=== PATIENT | male | born 1940 | race Caucasian/White ===

== ENCOUNTER → 2018-03-06 10:59 | Outpatient (CLI) | payer MEDICARE, OTHER, SELFPAY | PROVIDERS: Family Provider Internal Medicine; PCP Internal Medicine; Visit Provider Internal Medicine Cardiovascular Disease | DX: R00.2 Palpitations (principal); I25.10 Atherosclerotic heart disease of native coronary artery without angina pectoris | CPT/HCPCS: 93225; 93226 ==

== ENCOUNTER → 2019-04-02 13:53 | Outpatient (CLI) | payer MEDICARE, OTHER, SELFPAY ==
[2018-10-18 09:59] VITALS: BMI 27.6
== END ==
PROVIDERS: Family Provider Internal Medicine; PCP Internal Medicine; Referring Provider Internal Medicine Cardiovascular Disease; Visit Provider Internal Medicine Cardiovascular Disease
DX: R00.2 Palpitations (principal)
CPT/HCPCS: 93225; 93226

== ENCOUNTER → 2019-11-19 05:48 | Outpatient (CLI) | payer MEDICARE, OTHER, SELFPAY ==
[2019-11-04 13:06] VITALS: BMI 28.3
--- NOTE | 2019-11-19 11:39 | STRESSREP ---
Stress Test Report Date: 11-19-2019 Procedure: Exercise tolerance test/imaging study Indications: Chest pain; CAD; PCI Consent: Per the patient Procedure: The patient exercised on a Chase protocol for 7 minutes and 30 seconds completing stage II and 1 minute 30 seconds of stage III achieving a peak heart rate of 127 bpm (90 % predicted maximal heart rate) with a peak blood pressure 162/70 mmHg and a peak MET capacity of 9 METs. The baseline ECG demonstrated normal sinus rhythm; right bundle branch block. The peak exercise ECG demonstrated to new right bundle branch block. There were no cardiac dysrhythmias pretest, during exercise, or recovery. The functional capacity was considered good. There was complaint of chest discomfort during exercise or recovery. The examination was discontinued secondary to dyspnea and leg discomfort. Impression: 1. Technically adequate (percent predicted maximal heart rate greater than 85%) exercise tolerance test 2. Peak exercise ECG with continued right bundle branch block 3. There were no cardiac dysrhythmias pretest, during exercise, or recovery 4. Nuclear images pending Myocardial perfusion imaging study: Technique: The patient was injected with 11.6 mCi of technetium 99m Cardiolite and subsequently rest SPECT Cardiolite nuclear imaging was obtained in the horizontal long, vertical long, and short axis views. The patient exercised on a Chase protocol for 7 minutes and 30 seconds completing stage II and 1 minute 30 seconds of stage III achieving a peak heart rate of 127 bpm (90 % predicted maximal heart rate) with a peak blood pressure 162/70 mmHg and a peak MET capacity of 9 METs. The patient was injected with 32.5 mCi of technetium 99m Cardiolite and subsequently stress SPECT Cardiolite nuclear imaging was obtained in the horizontal long, vertical long, and short axis views. A gated Cardiolite study at peak stress was obtained. Interpretation: Rest and stress SPECT Cardiolite nuclear imaging status post realignment, normalization, and attenuation correction, demonstrates the appearance of relative uniform tracer uptake and myocardial perfusion appearing within normal limits. There is end systolic thickening and brightening. The gated Cardiolite study demonstrates myocardial thickening and inward wall motion. The reported LVEF is 66 %. Impression: 1. Rest and stress SPECT Cardiolite nuclear imaging demonstrate relative uniform tracer uptake and myocardial perfusion appearing within normal limits. 2. The gated Cardiolite study reports an LVEF of 66 %. This note was generated with [employer] software. It may contain incorrect words, spelling, and punctuation that were not noted in checking the note before signing.
== END ==
PROVIDERS: Family Provider Internal Medicine; PCP Internal Medicine; Referring Provider Internal Medicine Cardiovascular Disease; Visit Provider Internal Medicine Cardiovascular Disease
DX: I25.10 Atherosclerotic heart disease of native coronary artery without angina pectoris (principal); Z95.5 Presence of coronary angioplasty implant and graft
CPT/HCPCS: 78452; 93017; A9500; A4216

== ENCOUNTER → 2020-04-10 13:40 | Outpatient (CLI) | payer MEDICARE, OTHER, SELFPAY ==
[2020-04-10 09:14] VITALS: BMI 26.7
[2020-04-10 15:47] LABS: Absolute Lymphocyte Count 1.71 X10^3/uL (0.83-4.51); Absolute Neutrophil Count 3.9 X10^3/uL (2.0-7.7); Basophil# 0.04 X10^3/uL; Basophil% 0.6 % (0-1); Eosinophil# 0.18 X10^3/uL; Eosinophils% 2.7 % (0-5); Hematocrit 40.3 % (40-54); Hemoglobin 12.8 g/dL (13.0-16.5); Lymphocyte # 1.71 X10^3/ul (4.0); Lymphocyte % 25.7 % (19-41); Mean Corp Hgb Conc 31.8 g/dL (32-36); Mean Corpuscular Hgb 30.5 pg (27.0-32.0); Mean Platelet Vol. 11.1 fl (6.2-12.0); Monocyte# 0.82 X10^3/uL; Monocyte% 12.3 % (0-10); NRBC Flagged by Analyzer 0 % (0-5); Neutrophil # 3.89 X10^3/uL (2.7-7.7); Neutrophil % 58.4 % (47-70); Platelet Count 186 K/mm3 (150-450); RBC Distribution Width CV 12.9 % (11.6-14.6); RBC Distribution Width SD 45.3 fl (35.1-43.9); White Blood Count 6.7 K/mm3 (4.4-11.0)
[2020-04-10 16:37] LABS: ALB/GLOB Ratio 1.1 RATIO (0.9-2.4); AST(SGOT) 20 U/L (15-37); Alanine Aminotransfer ALT/SGPT 30 U/L (16-61); Alkaline Phosphatase 57 U/L (45-117); Anion Gap 5 (5-15); BUN 15 mg/dL (7-18); Calcium,Total 9.2 mg/dL (8.5-10.1); Chloride 105 mmol/L (98-107); Cholesterol 150 mg/dL (200); Creatinine, Serum 0.94 mg/dL (0.70-1.30); EST Glomerular Filtration Rate 82 mL/min (>60); Est Glom Filt Rate - Afr Amer 100 mL/min (>60); Globulin 3.6 g/dL (2.2-4.2); Glucose 88 mg/dL (74-106); High Density Lipoprotein 52 mg/dL; Magnesium 2.3 mg/dL (1.6-2.6); Potassium 4.1 mmol/L (3.5-5.1); Protein, Total 7.6 g/dL (6.4-8.2); Sodium Level 140 mmol/L (136-145); Thyroid Stim Hormone (TSH) 1.79 uIU/mL (0.358-3.74); Triglycerides 44 mg/dL; Very Low Density Lipoprotein 9 mg/dL (5-40)
== END ==
PROVIDERS: PCP Internal Medicine; Referring Provider Physician Assistant Medical; Visit Provider Physician Assistant Medical
DX: E78.2 Mixed hyperlipidemia (principal); I25.10 Atherosclerotic heart disease of native coronary artery without angina pectoris; R00.2 Palpitations; I34.0 Nonrheumatic mitral (valve) insufficiency
CPT/HCPCS: 36415; 80053; 80061; 83735; 84443; 85025

== ENCOUNTER → 2020-11-27 12:48 | Outpatient (CLI) | payer MEDICARE, OTHER, SELFPAY ==
[2020-11-25 10:20] VITALS: BMI 27.8
--- NOTE | 2020-11-27 12:51 | CDU_ITS ---
Reason For Study: STENOSIS Rt. Velocities/BP Lt. Velocities/BP Prox CCA 111/23 cm/sec. Prox CCA 128/23 cm/sec. Mid CCA 120/23 cm/sec. Mid CCA 121/24 cm/sec. Dist CCA 110/21 cm/sec. Dist CCA 123/26 cm/sec. Prox ICA 83/17 cm/sec. Prox ICA 125/21 cm/sec. Mid ICA 103/26 cm/sec. Mid ICA 105/28 cm/sec. Dist ICA 94/24 cm/sec. Dist ICA 81/26 cm/sec. Rt. ICA/CCA = .9. Lt. ICA/CCA = 1.0. Prox ECA 176/16 cm/sec. Prox ECA 132/13 cm/sec. Rt. Vert. 74/17 cm/sec. Lt. Vert. 54/12 cm/sec. Right Extracranial There is homogeneous, smooth atherosclerotic plaque noted in the right common carotid artery. There is heterogeneous, irregular atherosclerotic plaque noted in the right internal carotid artery. There is heterogeneous, irregular atherosclerotic plaque noted in the right external carotid artery. Antegrade flow is noted in the right vertebral artery. There is heterogeneous, irregular atherosclerotic plaque noted in the right bulb. Left Extracranial There is homogeneous, smooth atherosclerotic plaque noted in the left common carotid artery. There is homogeneous, smooth atherosclerotic plaque noted in the left internal carotid artery. There is homogeneous, smooth atherosclerotic plaque noted in the left external carotid artery. Antegrade flow is noted in the left vertebral artery. There is heterogeneous, irregular atherosclerotic plaque noted in the left bulb. Procedure Carotid Duplex 18264. Exam performed in department. Interpretation Summary Irregular calcific plaque distal right common carotid and proximal right internal carotid artery Less than 50% stenosis right internal carotid artery Less than 50% stenosis right external carotid artery Irregular calcific plaque at the proximal left internal carotid artery with 50 to 69% stenosis. Less than 50% stenosis left external carotid artery Patent and antegrade vertebral arteries bilaterally Ordering Physician: Charles Castro Referring Physician: CATHERINE BETHEA Performed By: Vicky Donis, RYANN, RVT
== END ==
PROVIDERS: PCP Internal Medicine; Referring Provider Internal Medicine Cardiovascular Disease; Visit Provider Internal Medicine Cardiovascular Disease
DX: I65.21 Occlusion and stenosis of right carotid artery (principal)
CPT/HCPCS: 93880

== ENCOUNTER → 2022-11-09 | Outpatient (CLI) | payer MEDICARE, OTHER, SELFPAY ==
--- NOTE | 2022-11-09 08:58 | CDU_ITS ---
Reason For Study: Carotid artery disease Rt. Velocities/BP Lt. Velocities/BP Prox CCA 130.2/17 cm/sec. Prox CCA 149.9/16 cm/sec. Mid CCA 143/22.5 cm/sec. Mid CCA 125.8/20.4 cm/sec. Dist CCA 108.3/18.8 cm/sec. Dist CCA 112.6/18.2 cm/sec. Prox ICA 108.3/18.8 cm/sec. Prox ICA 124.7/18.8 cm/sec. Mid ICA 108.3/22.5 cm/sec. Mid ICA 121.1/20.6 cm/sec. Dist ICA 99.2/24.3 cm/sec. Dist ICA 99.2/24.3 cm/sec. Rt. ICA/CCA = 0.83. Lt. ICA/CCA = 0.99. Prox ECA 193.8/9.4 cm/sec. Prox ECA 178.5/2.9 cm/sec. Rt. Vert. 72.8/12.6 cm/sec. Lt. Vert. 59.7/11.3 cm/sec. Right Extracranial There is heterogeneous, irregular atherosclerotic plaque noted in the right common carotid artery. There is heterogeneous, irregular atherosclerotic plaque noted in the right internal carotid artery. There is heterogeneous, irregular atherosclerotic plaque noted in the right external carotid artery. Antegrade flow is noted in the right vertebral artery. Left Extracranial There is homogeneous, smooth atherosclerotic plaque noted in the left common carotid artery. There is heterogeneous, irregular atherosclerotic plaque noted in the left internal carotid artery. There is heterogeneous, irregular atherosclerotic plaque noted in the left external carotid artery. Antegrade flow is noted in the left vertebral artery. VL/Carotid Duplex Ultrasound Interpretation Summary Mild (<50%) stenosis right extracranial internal carotid. Mild (<50%) stenosis left extracranial internal carotid. Patent and antegrade vertebrals bilaterally. Ordering Physician: Moreno Charlton Referring Physician: Nereyda Oglesby M.D. Performed By: Sarah Alvarez RVT
== END | disposition home or self-care (01) ==
LOC: CVS 08:57
PROVIDERS: PCP Internal Medicine; Visit Provider Nurse Practitioner Family
DX: I65.22 Occlusion and stenosis of left carotid artery (principal)
CPT/HCPCS: 93880

== ENCOUNTER → 2024-05-29 | Outpatient (CLI) | payer MEDICARE, OTHER, SELFPAY ==
--- NOTE | 2024-05-29 09:50 | RAD_ITS ---
STUDY: X-RAY - LUMBAR SPINE REASON FOR EXAM: Male, 83 years old. Pain. TECHNIQUE: 5 view(s) of the lumbar spine were obtained. COMPARISON: None FINDINGS: Osteopenia. Normal lordosis. No substantial scoliosis. 9 mm of anterolisthesis of L4 on L5. Diffuse lower thoracic and lumbosacral facet sclerosis. Diffuse intervertebral disc space narrowing with osteophytes most marked in the lower thoracic spine, L1-L2 and to the greatest degree at L4-L5 and L5-S1. Mild arthrosis of both hips. Marked aortic calcification. RAD/L/S Spine Min 4 Views IMPRESSION: Osteopenia with lower thoracic and lumbosacral spondylosis as described. No acute finding. Electronically Signed: Heber Mendes MD at 15:57 EDT ,
--- NOTE | 2024-05-29 09:50 | RAD_ITS ---
INDICATION: PAIN EXAMINATION/TECHNIQUE: X-RAY - LEFT XR Knee Complete 4 Views or More 4 VIEWS COMPARISON: none FINDINGS: SOFT TISSUES: No soft tissue swelling or gas. No radiopaque foreign body. Mineralization of the superior MCA. Scattered peripheral atherosclerosis. BONES/JOINTS: No acute fracture.. Normal alignment. Tricompartment joint space narrowing, severe at the lateral patellofemoral compartment, with mild tricompartment mild osteophyte formation.. No aggressive osseous lesion. 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 Sequela of old MCL injury. Electronically Signed: Dru Christy MD at 8:23 EDT ,
== END | disposition home or self-care (01) ==
LOC: LAB 09:45
PROVIDERS: PCP Internal Medicine; Referring Provider Anesthesiology; Visit Provider Anesthesiology
DX: M25.562 Pain in left knee (principal)
CPT/HCPCS: 72110; 73564

== ENCOUNTER → 2024-07-22 | Outpatient (CLI) | payer MEDICARE, OTHER, SELFPAY ==
--- NOTE | 2024-07-22 09:53 | ECHOD_ITS ---
Reason For Study: AMYLOIDOSIS Procedure This was a 2D Doppler, Color Flow transthoracic echocardiogram. Myocardial strain analysis was performed in this exam to aid in the assessment of cardiac function. The study was technically difficult. Exam performed in department. Left Ventricle Normal LV size. Left ventricular systolic function is normal. The left ventricular ejection fraction is 60 %. Stage 1 diastolic dysfunction. No regional wall motion abnormalities noted. Right Ventricle Normal RV size. Normal systolic function. Atria Normal left atrium. Normal right atrium. Tricuspid Valve Normal tricuspid valve. Mild tricuspid valve insufficiency. Pulmonary artery systolic pressure is 22 mmHg. Aortic Valve Trisinus/trileaflet aortic valve. Pulmonic Valve Normal pulmonic valve. Great Vessels Normal aortic root. The pulmonary artery is normal size. Inferior vena cava collapse with respiration. Pericardium/Pleural No pericardial effusion. MMode/2D Measurements & Calculations LVIDd: 5.5 cm IVSd: 1.3 cm LVOT diam: 2.0 cm LVIDs: 3.5 cm LVPWd: 1.1 cm LVOT area: 3.0 cm2 RVDd: 3.7 cm FS: 36.5 % LAV(MOD-bp): 42.3 ml LVAd ap4: 24.1 cm2 LVAd ap2: 17.1 cm2 LAV(MOD-bp) Indexed: 22.1 ml/m2 LVLd ap4: 6.9 cm LVLd ap2: 5.8 cm LAV(MOD-sp2): 41.7 ml EDV(MOD-sp4): 71.5 ml EDV(MOD-sp2): 40.8 ml LAV(MOD-sp4): 38.0 ml EDV(sp4-el): 70.9 ml EDV(sp2-el): 43.0 ml LVAs ap4: 13.9 cm2 LVAs ap2: 10.5 cm2 LVLs ap4: 5.1 cm LVLs ap2: 5.1 cm ESV(MOD-sp4): 32.8 ml ESV(MOD-sp2): 17.9 ml ESV(sp4-el): 32.2 ml ESV(sp2-el): 18.5 ml EF(MOD-sp4): 54.2 % EF(MOD-sp2): 56.1 % EF(sp4-el): 54.5 % SV(MOD-sp4): 38.8 ml SV(MOD-sp2): 22.8 ml SV(sp4-el): 38.7 ml Ao sinus diam: 3.[address] Junction: 3.0 cm LA A4 area: 14.4 cm2 LA dimension(2D): 4.0 cm RA A4 area: 14.9 cm2 TAPSE: 1.6 cm Time Measurements MV dec time: 0.18 sec Doppler Measurements & Calculations MV E max arsenio: 87.1 cm/sec Lat Peak E' Arsenio: 8.2 cm/sec Med Peak E' Arsenio: 8.0 cm/sec MV A max arsenio: 90.9 cm/sec E/E' lat: 10.6 E/E' med: 10.9 MV E/A: 0.96 Ao V2 max: 131.6 cm/sec LV V1 max: 118.7 cm/sec MV dec slope: 497.9 cm/sec2 Ao max P.9 mmHg LV V1 max P.6 mmHg Ao V2 mean: 90.0 cm/sec LV V1 mean P.0 mmHg Ao mean P.7 mmHg LV V1 mean: 83.6 cm/sec Ao V2 VTI: 29.3 cm LV V1 VTI: 27.2 cm AV (velocity ratio): 0.93 REDDY(I,D): 2.8 cm2 REDDY(V,D): 2.7 cm2 SV(LVOT): 82.0 ml PA V2 max: 99.8 cm/sec TR max arsenio: 221.5 cm/sec PA max PG (full): 0.81 mmHg TR max P.6 mmHg ECHO/Echo Complete Interpretation Summary Normal LV size. Left ventricular systolic function is normal. The left ventricular ejection fraction is 60 %. Stage 1 diastolic dysfunction. The global longitudinal strain is normal. The global longitudinal strain = -20. 1 % (normal). Ordering Physician: Felisa Dominguez Referring Physician: Nereyda Oglesby M.D. Performed By: Alyx Julian RDCS
== END | disposition home or self-care (01) ==
LOC: CVS 09:52
PROVIDERS: PCP Internal Medicine; Referring Provider Physician Assistant Medical; Visit Provider Physician Assistant Medical
DX: E85.9 Amyloidosis, unspecified (principal)
CPT/HCPCS: 93306

== ENCOUNTER → 2024-11-11 | Outpatient (CLI) | payer MEDICARE, OTHER, SELFPAY ==
--- NOTE | 2024-11-11 10:15 | MRI_ITS ---
STUDY: MRI LUMBAR SPINE WITHOUT CONTRAST REASON FOR EXAM: Male, 84 years old. Back pain x8 years. Spondylosis. TECHNIQUE: Standardized fat and water weighted pulse sequences were obtained in the sagittal and axial planes. COMPARISON: Lumbar spine radiographs 05/29/2024. FINDINGS: T11-T12 and T12-L1: (Sagittal only). Normal endplates. Normal disc height, hydration and morphology Normal central canal and bilateral intervertebral neural foramina. Normal lumbar lordosis. There is no substantial scoliosis. Normal conus medullaris that terminates at the T12-L1 disc space level. L1-2: Normal endplates. Normal disc height, hydration and morphology. Normal bilateral facet joints. Normal central canal and bilateral lateral recesses. Normal bilateral intervertebral neural foramina. L2-3: Normal endplates. Normal disc height. Mild ventral extradural defect due to posterior bulging annulus. Mild bilateral degenerative facet arthropathy. Posterior ligamenta flava hypertrophy and moderate pronounced central canal stenosis with an AP canal diameter 6 mm. Normal bilateral lateral recesses. Mild stenosis of the bilateral intervertebral neuroforamina. L3-4: Normal endplates. Normal disc height. Minimal degenerative anterolisthesis of L3 on L4. Moderate bilateral degenerative facet arthropathy. Asymmetric posterior ligamenta flava hypertrophy. Mild dorsal epidural lipomatosis. Moderately pronounced central canal stenosis with an AP canal diameter of 5.5 mm. Normal bilateral lateral recesses. Mild stenosis of the bilateral intervertebral neuroforamina, left greater than right. L4-5: Modic type I degenerative vertebral marrow edema underneath the vertebral endplates. Moderate disc space height narrowing. Mild degenerative anterolisthesis of L4 on L5. Moderately pronounced bilateral degenerative facet arthropathy. Mild central canal stenosis with an AP canal diameter of 9 mm. Normal bilateral lateral recesses. Moderate stenosis of the bilateral intervertebral neuroforamina. L5-S1: Modic type II degenerative vertebral marrow fat infiltration underneath the vertebral endplates. Moderate disc space height narrowing. Mild degenerative retrolisthesis of L5 on S1. Mild bilateral degenerative facet arthropathy. Normal central canal and bilateral lateral recesses. Moderate stenosis of the left intervertebral neuroforamen. [id number] stenosis of the right intervertebral neuroforamen. Normal visualized sacral ala. Normal visualized paraspinous soft tissue structures. MRI/Spine Lumbar (Routine) IMPRESSION: 1. Moderate L4-L5 intervertebral osteochondritis (Modic type I), mild degenerative anterolisthesis of L4 on L5, moderate disc space height narrowing, moderately pronounced bilateral degenerative facet arthropathy, mild central canal stenosis with small posterior bulging annulus and moderate stenosis of the bilateral intervertebral neuroforamina. 2. Moderate L5-S1 disc space height narrowing with Modic type II changes of the vertebral marrow, mild degenerative retrolisthesis of L5 on S1, moderate stenosis of the left intervertebral neuroforamen and mild to moderate stenosis of the right intervertebral neuroforamen. 3. Moderately pronounced central canal stenosis at L3-L4 disc space level with an AP canal diameter 5.5 mm secondary to developmentally short pedicles, mild dorsal epidural lipomatosis, posterior ligamenta flava hypertrophy and minimal degenerative anterolisthesis of L3 on L4. 4. No MRI evidence of lumbar extruded disc fragment or lumbar disc protrusion. Electronically Signed: Nik Bergeron MD at 16:07 EST ,
== END | disposition home or self-care (01) ==
LOC: MRI 09:50
PROVIDERS: PCP Internal Medicine; Referring Provider Anesthesiology; Visit Provider Anesthesiology
DX: M47.816 Spondylosis without myelopathy or radiculopathy, lumbar region (principal)
CPT/HCPCS: 72148

== ENCOUNTER → 2025-02-25 | Outpatient (CLI) | payer MEDICARE, OTHER, SELFPAY ==
[2025-02-25 11:55] LABS: PSA,Total- Diagnostic 0.77 ng/mL (0.00-4.00)
== END | disposition home or self-care (01) ==
LOC: LAB 10:23
PROVIDERS: PCP Internal Medicine; Referring Provider Urology; Visit Provider Urology
DX: N40.1 Benign prostatic hyperplasia with lower urinary tract symptoms (principal)
CPT/HCPCS: 36415; 84153

== ENCOUNTER → 2025-06-24 | Outpatient (CLI) | payer MEDICARE, OTHER, SELFPAY ==
[2025-06-24 11:36] LABS: Hematocrit 37.2 % (40-54); Hemoglobin 12.8 g/dL (13.0-16.5); Mean Corp Hgb Conc 34.4 g/dL (32-36); Mean Corpuscular Volume 91.6 fL (80-94); Mean Platelet Vol. 10.8 fl (6.2-12.0); Platelet Count 178 K/mm3 (150-450); RBC Distribution Width CV 12.5 % (11.6-14.6); RBC Distribution Width SD 41.9 fl (35.1-43.9); Red Blood Count 4.06 M/mm3 (4.6-6.2); White Blood Count 6.1 K/mm3 (4.4-11.0)
[2025-06-24 12:34] LABS: AST(SGOT) 27 U/L (<=37); Alanine Aminotransfer ALT/SGPT 29 U/L (<=46); Albumin, Serum 4.1 g/dL (3.4-4.8); Alkaline Phosphatase 64 U/L (40-129); Anion Gap 10 (5-15); BUN 14 mg/dL (4-19); BUN/Creat Ratio 17.2 RATIO (10-20); Calcium,Total 9.4 mg/dL (7.6-11.0); Carbon Dioxide 23.8 mmol/L (21.0-32.0); Chloride 104 mmol/L (98-108); Globulin 3.0 g/dL (2.2-4.2); Glucose 115 mg/dL (70-99); Potassium 4.4 mmol/L (3.3-5.1); Vitamin B12 559 pg/mL (180-914)
[2025-06-26 13:08] LABS: Vitamin D 1,25-Dihydroxy 41.0 pg/mL (24.8-81.5)
[2025-06-30 19:07] LABS: Folate, Hemolysate Test 239.0 ng/mL (Not Estab.); Folate, RBC (Hct) Test 38.8 % (37.5-51.0); Folates, RBC Test 616 ng/mL (>498); VITAMIN B6 118.6 ug/L (3.4-65.2); Vitamin B1, Thiamine 102.6 nmol/L (66.5-200.0)
== END | disposition home or self-care (01) ==
LOC: LAB 10:33
PROVIDERS: PCP Internal Medicine; Referring Provider Psychiatry & Neurology Neurology; Visit Provider Psychiatry & Neurology Neurology
DX: G62.9 Polyneuropathy, unspecified (principal); E78.2 Mixed hyperlipidemia; R73.9 Hyperglycemia, unspecified
CPT/HCPCS: 36415; 80053; 82607; 82652; 82747; 83036; 83883; 84207; 84425; 84443; 85014; 85027

== ENCOUNTER → 2025-09-25 | Outpatient (CLI) | payer MEDICARE, OTHER, SELFPAY ==
[2025-09-30 16:09] LABS: Albumin 3.7 g/dL (2.9-4.4); Gamma Globulin 1.3 g/dL (0.4-1.8); Immunoglobulin A 188 mg/dL (61-437); Immunoglobulin G 1443 mg/dL (603-1613); Immunoglobulin M 124 mg/dL (15-143); PROEL- TOTAL PROTEIN 6.7 g/dL (6.0-8.5)
== END | disposition home or self-care (01) ==
LOC: MTLAB 12:53
PROVIDERS: PCP Internal Medicine; Referring Provider Psychiatry & Neurology Neurology; Visit Provider Psychiatry & Neurology Neurology
DX: G62.9 Polyneuropathy, unspecified (principal)
CPT/HCPCS: 36415; 82784; 84165; 86334; 86335